=== PATIENT | female | born 1950 | race Caucasian/White ===

== ENCOUNTER 2022-09-24 13:23 | Outpatient (CLI) | payer MEDICARE | END 2022-09-24 13:24 | disposition home or self-care (01) | LOC: SCSMRI 13:23 | PROVIDERS: ATTEND Anesthesiology Pain Medicine | DX: S32.010A Wedge compression fracture of first lumbar vertebra, initial encounter for closed fracture (principal); M43.16 Spondylolisthesis, lumbar region; M51.36 Other intervertebral disc degeneration, lumbar region; M51.37 Other intervertebral disc degeneration, lumbosacral region; M43.8X6 Other specified deforming dorsopathies, lumbar region; M48.07 Spinal stenosis, lumbosacral region; M51.34 Other intervertebral disc degeneration, thoracic region | CPT/HCPCS: 72100; 72148 ==

== ENCOUNTER 2024-01-21 10:39 | Outpatient (CLI) | payer MEDICARE | END 2024-01-21 10:40 | disposition home or self-care (01) | LOC: BICCT 10:39 | PROVIDERS: ATTEND Family Medicine Sports Medicine | DX: K21.9 Gastro-esophageal reflux disease without esophagitis (principal); M54.6 Pain in thoracic spine; N20.0 Calculus of kidney | CPT/HCPCS: 74176 ==

== ENCOUNTER 2024-03-11 13:41 | Outpatient (CLI) | payer MEDICARE | END 2024-03-11 13:42 | disposition home or self-care (01) | LOC: BICMAMMO 13:41 | PROVIDERS: ATTEND Family Medicine Sports Medicine | DX: Z78.0 Asymptomatic menopausal state (principal); M81.0 Age-related osteoporosis without current pathological fracture | CPT/HCPCS: 77080 ==

== ENCOUNTER 2024-09-08 15:04 | Emergency (ER) | payer MEDICARE ==
[2024-09-08] MEDS ORDERED: Acetaminophen 325 MG TAB ONE (16:11)
[2024-09-08 16:22] LABS: #Basophils 0.07 10x3/uL (0.0-0.2); #Eosinophils 0.09 10x3/uL (0.0-0.7); #Monocytes 0.91 10x3/uL (0.11-0.59); #Neutrophils 7.03 10x3/uL (1.40-6.50); %Basophils 0.7 % (0.0-1.0); %Monocytes 9.7 % (0.0-10.0); %Neutrophils 75.3 % (42.0-75.0); Hematocrit 35.1 % (36.0-47.0); Hemoglobin 12.2 g/dL (12.0-16.0); Mean Corpuscular HGB CONC 34.8 g/dL (32.0-36.0); Mean Corpuscular Hemoglobin 33.8 pg (27.0-31.0); Mean Corpuscular Volume 97.2 fL (78.0-98.0); Mean Platelet Volume 9.6 fL (7.4-10.4); Platelet Count 268 10x3/uL (130-400); RBC Distribution Width 13.3 % (11.5-14.5); Red Blood Cell (RBC) Count 3.61 mill/uL (4.20-5.40); White Blood Cell (WBC) Count 9.35 10x3/uL (4.8-10.8)
[2024-09-08 17:05] LABS: Troponin I Less than 0.010 ng/mL (< 0.028)
[2024-09-08 17:06] LABS: ALT (SGPT) 46 U/L (Less than 34); AST (SGOT) 61 U/L (11-34); Alkaline Phosphatase 63 U/L (40-110); Anion Gap 15 mmol/L (10-20); BUN (Urea Nitrogen) 17 mg/dL (9.8-20.1); Bilirubin, Total 0.5 mg/dL (0.3-1.2); Calc. Creatinine Clearance 0 mL/min (70-130); Calcium 8.9 mg/dL (7.8-10.44); Carbon Dioxide 23 mmol/L (23-31); Chloride 100 mmol/L (98-107); Estimated GFR 74; Globulin 2.8 g/dL (2.4-3.5); Glucose 78 mg/dL (83-110); Potassium 4.3 mmol/L (3.5-5.1); Protein, Total 6.8 g/dL (5.8-8.1); Sodium 134 mmol/L (136-145)
== END 2024-09-08 17:38 | disposition home or self-care (01) ==
LOC: ERS 15:04
DX: R55 Syncope and collapse (principal); S09.90XA Unspecified injury of head, initial encounter; W22.8XXA Striking against or struck by other objects, initial encounter
CPT/HCPCS: 70450; 71045; 80053; 83880; 84484; 85025; 85379; 93005